=== PATIENT | female | born 1965 | race Asian ===

== ENCOUNTER 2020-06-26 08:05 | Emergency (ER) | payer BC, OTHER ==
[~2020-06-26] VITALS: Ht 157.5 cm; Wt 77.1 kg
--- NOTE | 2020-06-26 09:16 | NUR ---
Pt twisted right ankle several weeks ago, went back to work last night and started having increasing pain, 11/19. Pt denies CP, SOB, dizziness, n/v, no other complaints, no distress noted.
--- NOTE | 2020-06-26 10:20 | NUR ---
Patient discharged to home in stable condition. Written and verbal after care instructions given. Patient verbalizes understanding of instructions. Stressed follow up or return to ER for worsening s/s.
== END 2020-06-26 10:22 | disposition home or self-care (01) ==
LOC: ER 08:06
DX: S93.491A Sprain of other ligament of right ankle, initial encounter (principal); S86.011A Strain of right Achilles tendon, initial encounter; W01.0XXA Fall on same level from slipping, tripping and stumbling without subsequent striking against object, initial encounter; Y92.89 Other specified places as the place of occurrence of the external cause; M25.551 Pain in right hip
CPT/HCPCS: 73502; 73610; 73630; A4663

== ENCOUNTER 2020-08-21 19:31 | Emergency (ER) | payer BC, OTHER ==
[~2020-08-21] VITALS: Ht 157.5 cm; Wt 79.4 kg
--- NOTE | 2020-08-21 19:50 | NUR ---
noc technician in room to draw labs on patient.
[2020-08-21 20:07] LABS: BASOPHILS # (AUTO) 0.1 K/uL (0.0-8.0); EOSINOPHILS # (AUTO) 0.6 K/uL (0.0-0.7); EOSINOPHILS % (AUTO) 6.4 % (0.0-7.0); HEMATOCRIT 40.7 % (31.2-41.9); LYMPHOCYTES # (AUTO) 3.7 K/uL (20.0-40.0); LYMPHOCYTES % (AUTO) 39.2 % (20.5-51.5); MEAN CORPUSCULAR HEMOGLOBIN 23.4 uug (24.7-32.8); MEAN CORPUSCULAR HGB CONC 32 g/dL (32.3-35.6); MEAN CORPUSCULAR VOLUME 73.1 fL (75.5-95.3); MONOCYTES # (AUTO) 0.4 K/uL (2.0-10.0); MONOCYTES % (AUTO) 4.7 % (0.0-11.0); NEUTROPHILS # (AUTO) 4.6 K/uL (1.8-8.9); NEUTROPHILS % (AUTO) 48.7 % (38.5-71.5); PLATELET COUNT (AUTO) 304 K/uL (179-408); RED BLOOD CELL COUNT(AUTO) 5.57 MIL/uL (3.63-4.92); WHITE BLOOD COUNT (AUTO) 9.4 K/uL (3.8-11.8)
[2020-08-21 20:13] LABS: POTASSIUM 4.2 mmol/L (3.5-5.1)
[2020-08-21 20:19] LABS: BILIRUBIN,TOTAL 0.3 mg/dL (0.2-1.0); TOTAL PROTEIN, SERUM 7.7 g/dL (6.4-8.2)
[2020-08-21 20:22] LABS: THYROID STIMULATING HORMONE 1.346 mIU/mL (0.358-3.740)
--- NOTE | 2020-08-21 20:30 | NUR ---
Patient is ambulating within unit with steady gait, no apparent distress is noted.
--- NOTE | 2020-08-21 20:39 | NUR ---
MD KIZZY ROBERTSON in room to examine patient.
[2020-08-21 20:55] LABS: *BILIRUBIN,URIN NEGATIVE (NEGATIVE); *BLOOD, URINE NEGATIVE (NEGATIVE); *CLARITY,URINE CLEAR (CLEAR); *COLOR,URINE YELLOW (YELLOW); *KETONES,URINE NEGATIVE (NEGATIVE); *UROBILINOGEN,URINE 0.2 E.U./dl (NORMAL); LEUKOCYTE ESTERASE ,URINE NEGATIVE (NEGATIVE); NITRITE, URINE NEGATIVE (NEGATIVE); PH,URINE 7.5 (5.0-8.0); UGLUCOSE NEGATIVE (NEGATIVE)
[2020-08-21 21:15] VITALS: BP 147/97
--- NOTE | 2020-08-21 21:15 | NUR ---
Patient discharged in stable condition. Written and verbal after care instructions given. Patient verbalizes understanding of instructions. Stressed follow up or return to ER for worsening s/s. Patient ambulates with steady gait, given lab results, and has all personal belongs with her.
--- NOTE | 2020-08-21 21:15 | NUR ---
Yolis khan in EDM - 08/21/20 at 2133 by BRANDT Patient discharged to home in stable condition. Written and verbal after care instructions given. Patient verbalizes understanding of instructions. Stressed follow up or return to ER for worsening s/s. Patient ambulates with steady gait, given lab results, and has all personal belongs with her.
== END 2020-08-21 21:15 | disposition home or self-care (01) ==
LOC: ER 19:32
DX: E04.1 Nontoxic single thyroid nodule (principal); R73.03 Prediabetes; I10 Essential (primary) hypertension; Z86.16 Personal history of COVID-19
CPT/HCPCS: 36415; 84443; 85025; 93005; A4663

== ENCOUNTER 2021-12-13 08:52 | Emergency (ER) | payer BC, OTHER ==
[~2021-12-13] VITALS: Ht 157.5 cm; Wt 80.7 kg
--- NOTE | 2021-12-13 09:01 | NUR ---
at bedside for evaluation.
[2021-12-13] MEDS ORDERED: DEXAMETHASONE SOD PHOSPHATE 4 MG INJ IV ONE (09:15)
[2021-12-13] MEDS ORDERED: CEFTRIAXONE 1 G in IV DEXTROSE 5% 50 ML IV ONE (09:15)
[2021-12-13] MEDS ORDERED: IV NORMAL SALINE 1000 ML BAG IV ONE (09:15)
[2021-12-13] MEDS ORDERED: CEFTRIAXONE /D5W 50ML IVPB **ER PYXIS IV ONE (09:32)
[2021-12-13] MEDS ORDERED: DEXAMETHASONE SOD PHOSPHATE 10 MG INJ ONE (09:32)
[2021-12-13 09:36] LABS: HEMATOCRIT 41.7 % (31.2-41.9); MEAN CORPUSCULAR HEMOGLOBIN 23.6 uug (24.7-32.8); MEAN CORPUSCULAR VOLUME 71.2 fL (75.5-95.3); PLATELET COUNT (AUTO) 326 K/uL (179-408)
[2021-12-13 09:42] LABS: CARBON DIOXIDE 28 mmol/L (21-32); CHLORIDE 101 mmol/L (98-107); GLUCOSE 116 mg/dL (74-106); UREA NITROGEN, BLOOD 10 mg/dL (7-18)
[2021-12-13] MEDS ORDERED: AZITHROMYCIN 250 MG TABLET PO ONE (09:45)
[2021-12-13] MEDS ORDERED: ACETAMINOPHEN 325 MG TABLET PO ONE (09:45)
[2021-12-13 09:55] LABS: ALANINE AMINOTRANSFERASE 38 U/L (14-59); ALKALINE PHOSPHATASE 162 U/L (50-136); ASPARTATE AMINOTRANSFERASE 25 U/L (15-37); BILIRUBIN,DIRECT 0.2 mg/dL (0.0-0.2); BILIRUBIN,TOTAL 0.5 mg/dL (0.2-1.0); TOTAL PROTEIN, SERUM 8.7 g/dL (6.4-8.2)
--- NOTE | 2021-12-13 10:00 | NUR ---
Covid and flu specimen sent to lab.
[2021-12-13] MEDS ORDERED: ACETAMINOPHEN ES 500 MG TABLET ONE (10:03)
[2021-12-13] MEDS ORDERED: AZITHROMYCIN 250 MG TABLET ONE (10:03)
[2021-12-13 10:50] LABS: *BILIRUBIN,URIN NEGATIVE (NEGATIVE); *BLOOD, URINE TRACE (NEGATIVE); *CLARITY,URINE CLEAR (CLEAR); *COLOR,URINE YELLOW (YELLOW); *KETONES,URINE NEGATIVE (NEGATIVE); LEUKOCYTE ESTERASE ,URINE NEGATIVE (NEGATIVE); NITRITE, URINE NEGATIVE (NEGATIVE); UGLUCOSE NEGATIVE (NEGATIVE)
[2021-12-13] MEDS ORDERED: PRED50TA PO (11:15)
[2021-12-13] MEDS ORDERED: Paxlovid PO (11:15)
[2021-12-13] MEDS ORDERED: NAPR-1164 PO (11:15)
[2021-12-13] MEDS ORDERED: AZIT500T PO (11:15)
[2021-12-13 11:29] VITALS: BP 146/84
[2021-12-13 19:39] LABS: BACTERIA,URINE NONE SEEN /HPF (NONE SEEN); SQUAMOUS EPITHELIAL CELL,UR FEW /HPF (NONE SEEN); WBC,URINE 0-3 /HPF (0-3)
== END 2021-12-13 11:31 | disposition home or self-care (01) ==
LOC: ER 08:52
DX: U07.1 COVID-19 (principal); J12.82 Pneumonia due to coronavirus disease 2019; R94.31 Abnormal electrocardiogram [ECG] [EKG]; R73.03 Prediabetes; E04.9 Nontoxic goiter, unspecified
CPT/HCPCS: 36415; 71045; 80048; 80076; 81001; 83605; 83880; 84145; 84484; 84702; 85025; 85379; 85730; 87040 ×2; 87086; 87400; 87426; 93005; 96365; 96375; 99285; J0696; J1100; J7040 ×2; A4663; A9150; Q0144